=== PATIENT | male | born 1935 | race Caucasian/White ===

== ENCOUNTER → 2018-03-17 | Outpatient (CLI) | payer MEDICARE, OTHER ==
[~2018-03-17] MED LIST: ALLO300T PO; ASCO-96 PO; ASPI-496 PO; ASPI325T17 PO; CHOL2000 PO; GABA-826 PO; HYDR12.53 PO; LISI-170 PO; LOSA50TA7 PO; METO25TA35 PO; OMEG500C3 PO; OXYC5CAP2 PO; SIMV20TA3 PO; TRAM50TA2 PO; UBID100C24 PO
== END | disposition home or self-care (01) ==
LOC: CVU 09:52
PROVIDERS: ATTEND Internal Medicine Cardiovascular Disease
DX: I08.3 Combined rheumatic disorders of mitral, aortic and tricuspid valves (principal); I10 Essential (primary) hypertension; Z95.1 Presence of aortocoronary bypass graft
CPT/HCPCS: 93306; 93880

== ENCOUNTER 2018-04-01 05:57 | Inpatient (IN) | payer MEDICARE, OTHER ==
[2018-03-31 10:26] LABS: BASOPHILS # (AUTO) 0.02 x10^3/uL (0-0.1); BASOPHILS % (AUTO) 0 % (0-1); EOSINOPHILS # (AUTO) 0.12 x10^3/uL (0-0.4); EOSINOPHILS % (AUTO) 2 % (1-7); LYMPHOCYTES % (AUTO) 24 % (22-44); MD NO; MEAN CORPUSCULAR HEMOGLOBIN 30.8 pg (27.5-34.5); MEAN CORPUSCULAR HGB CONC 33.7 g/dL (33.2-36.2); MEAN CORPUSCULAR VOLUME 91.4 fL (81-97); MEAN PLATELET VOLUME 8.6 fL (7.4-10.4); MONOCYTES # (AUTO) 0.55 x10^3/uL (0.2-0.8); MONOCYTES % (AUTO) 9 % (2-9); NEUTROPHILS # (AUTO) 3.79 x10^3/uL (1.8-6.8); NEUTROPHILS % (AUTO) 65 % (42-75); PLATELET COUNT 225 x10^3/uL (130-400); RED BLOOD COUNT 4.93 x10^6/uL (4.38-5.82); RED CELL DISTRIBUTION WIDTH 14.7 % (9.4-14.8)
[2018-03-31 10:27] LABS: ALANINE AMINOTRANSFERASE 37 U/L (12-78); ALBUMIN 3.8 g/dL (3.4-5.0); ANION GAP 7 mmol/L (5-15); CALCIUM 8.7 mg/dL (8.5-10.1); CHLORIDE 105 mmol/L (98-107)
[2018-03-31 10:30] LABS: ALKALINE PHOSPHATASE 65 U/L (45-117); BILIRUBIN,TOTAL 0.5 mg/dL (0.2-1.0); CREATININE 1.32 mg/dL (0.7-1.3); TOTAL PROTEIN 7.6 g/dL (6.4-8.2)
[2018-03-31 10:58] LABS: MICROSCOPIC NOT IND
[2018-03-31 11:07] LABS: CULTURE INDICATED? NO
[~2018-04-01] VITALS: Ht 177.8 cm; Wt 93.4 kg
[2018-04-01] MEDS ORDERED: LACTATED RINGERS 1,000 ML IV SCH (06:26)
[2018-04-01] MEDS ORDERED: SODIUM CHLORIDE 0.9% 100 ML ONE (06:36)
[2018-04-01] MEDS ORDERED: ROPIvacaine/PF 0.2%, 20 ML ONE (06:36)
[2018-04-01] MEDS ORDERED: KETOROLAC 60 MG/2 ML ONE (06:36)
[2018-04-01] MEDS ORDERED: EPINEPHRINE 1 MG/ML, 1ML ONE (06:36)
[2018-04-01] MEDS ORDERED: VANCOMYCIN 1,000 MG ONE (06:36)
[2018-04-01] MEDS ORDERED: TRANEXAMIC ACID 100 MG/ML, 10ML ONE (06:36)
[2018-04-01] MEDS ORDERED: FENTANYL PF 250 MCG/5ML ONE (06:49)
[2018-04-01] MEDS ORDERED: MIDAZOLAM 1 MG/ML, 2ML ONE (06:49)
[2018-04-01] MEDS ORDERED: GABAPENTIN 300 MG CAPSULE PO ONE (07:00)
[2018-04-01] MEDS ORDERED: SCOPOLAMINE PATCH, 1.5MG PATCH.TD72 TD ONE (07:00)
[2018-04-01] MEDS ORDERED: ACETAMINOPHEN 500 MG TABLET PO ONE (07:00)
[2018-04-01] MEDS ORDERED: SUCCINYLCHOLINE 20 MG/ML, 10ML ONE (07:12)
[2018-04-01] MEDS ORDERED: hydrALAzine 20 MG/ML, 1ML ONE (07:12)
[2018-04-01] MEDS ORDERED: PROPOFOL 10 MG/ML, 20ML ONE (07:12)
[2018-04-01] MEDS ORDERED: DEXAMETHASONE 4 MG/ML, 1ML ONE (07:12)
[2018-04-01] MEDS ORDERED: ROCURONIUM 10MG/ML,5ML ONE (07:12)
[2018-04-01] MEDS ORDERED: ONDANSETRON 2MG/ML, 2ML ONE (07:12)
[2018-04-01] MEDS: D5%-0.45% NACL 1,000 ML IV SCH ×2 (08:43→22:03)
[2018-04-01] MEDS: HYDROmorphone 1 MG/ML, 1ML IV PRN ×2 (08:48→08:55)
[2018-04-01] MEDS ORDERED: HYDROmorphone 2 MG/ML, 1ML ONE (08:49)
[2018-04-01] MEDS ORDERED: OXYcodone 5 MG/5 ML ORAL.SOL UDC ONE (08:49)
[2018-04-01] MEDS ORDERED: FENTANYL PF 100 MCG/2ML ONE ×2 (08:59→09:12)
[2018-04-01] MEDS ORDERED: DIAZEPAM 5 MG TABLET ONE (08:59)
[2018-04-01] MEDS ORDERED: ONDANSETRON 2MG/ML, 2ML IV PRN ×2 (09:00)
[2018-04-01] MEDS ORDERED: ONDANSETRON ODT 8 MG PO PRN (09:00)
[2018-04-01] MEDS ORDERED: hydrALAzine 20 MG/ML, 1ML IV PRN (09:00)
[2018-04-01] MEDS ORDERED: DIPHENHYDRAMINE 50 MG CAPSULE PO PRN (09:00)
[2018-04-01] MEDS ORDERED: ONDANSETRON 4 MG TABLET PO PRN (09:00)
[2018-04-01] MEDS ORDERED: OXYcodone 5 MG/5 ML ORAL.SOL UDC PO PRN (09:00)
[2018-04-01] MEDS ORDERED: SENNA/DOCUSATE TABLET PO PRN (09:00)
[2018-04-01] MEDS ORDERED: HYDROmorphone 1 MG/ML, 1ML IV PRN (09:00)
[2018-04-01] MEDS ORDERED: DIAZEPAM 5 MG TABLET PO PRN (09:00)
[2018-04-01] MEDS ORDERED: ALUMINUM/MAG/SIMETHICONE 30 ML UDC PO PRN (09:00)
[2018-04-01] MEDS: LISINOPRIL 20 MG TABLET PO SCH (09:00)
[2018-04-01] MEDS ORDERED: LABETALOL 5MG/ML, 20ML IV PRN (09:00)
[2018-04-01] MEDS ORDERED: PROMETHAZINE 25 MG/ML, 1ML IM PRN (09:00)
[2018-04-01] MEDS ORDERED: PROMETHAZINE 12.5 MG SUPP PR PRN ×2 (09:00)
[2018-04-01] MEDS: ALLOPURINOL 300 MG TABLET PO SCH (09:00)
[2018-04-01] MEDS ORDERED: MAGNESIUM HYDROXIDE 8%, 30ML UDC PO PRN (09:00)
[2018-04-01] MEDS ORDERED: BISACODYL 10 MG SUPP PR PRN (09:00)
[2018-04-01] MEDS ORDERED: TRANEXAMIC ACID 1,000 MG in SODIUM CHLORIDE 0.9% 100 ML IVPB ONE (09:00)
[2018-04-01] MEDS ORDERED: HYDROcodone/APAP 10/325 MG TABLET PO PRN (09:00)
[2018-04-01] MEDS ORDERED: ZOLPIDEM 5MG TABLET PO PRN (09:00)
[2018-04-01] MEDS: FENTANYL PF 100 MCG/2ML IV PRN ×3 (09:01→09:14)
[2018-04-01 11:05] VITALS: BP 93/55
[2018-04-01] MEDS ORDERED: CEFAZOLIN 2,000 MG in DEXTROSE 5% 50 ML IVPB SCH (11:30)
[2018-04-01] MEDS: HYDROCHLOROTHIAZIDE 12.5 MG CAPSULE PO SCH (11:30)
[2018-04-01 12:02] VITALS: BP 104/63
[2018-04-01] MEDS ORDERED: CEFAZOLIN PMX 2GM/50ML 50 ML IVPB SCH (14:30)
[2018-04-01] MEDS: CEFAZOLIN 2,000 MG in DEXTROSE 5% 50 ML IVPB SCH ×2 (15:26→23:15)
[2018-04-01] MEDS: MULTIVITAMINS/MINERALS TABLET PO SCH (15:37)
[2018-04-01] MEDS: TAMSULOSIN 0.4 MG CAP.ER.24H PO SCH (15:37)
[2018-04-01] MEDS: ACETAMINOPHEN 650 MG/20.3 ML UDC PO SCH ×3 (15:38→21:36)
[2018-04-01] MEDS: DOCUSATE 100 MG CAPSULE PO SCH ×2 (15:38→21:35)
[2018-04-01] MEDS: ASPIRIN 81 MG TABLET EC PO SCH (18:15)
[2018-04-01 19:46] VITALS: BP 95/60
[2018-04-01] MEDS ORDERED: SIMVASTATIN 20 MG TABLET PO SCH (21:00)
[2018-04-02 00:17] VITALS: BP 98/59
[2018-04-02] MEDS: ACETAMINOPHEN 650 MG/20.3 ML UDC PO SCH ×2 (03:28→08:57)
[2018-04-02 04:14] VITALS: BP 121/54
[2018-04-02] MEDS: ASPIRIN 81 MG TABLET EC PO SCH (05:27)
[2018-04-02] MEDS ORDERED: DEXAMETHASONE 4 MG/ML, 1ML IVPush SCH (06:00)
[2018-04-02 07:40] VITALS: BP 102/64
[2018-04-02] MEDS: ALLOPURINOL 300 MG TABLET PO SCH (08:57)
[2018-04-02] MEDS: DOCUSATE 100 MG CAPSULE PO SCH (08:57)
[2018-04-02] MEDS: MULTIVITAMINS/MINERALS TABLET PO SCH (08:57)
[2018-04-02] MEDS: LISINOPRIL 20 MG TABLET PO SCH (08:58)
[2018-04-02] MEDS: TAMSULOSIN 0.4 MG CAP.ER.24H PO SCH (08:58)
[2018-04-02] MEDS: HYDROCHLOROTHIAZIDE 12.5 MG CAPSULE PO SCH (08:58)
[2018-04-02] MEDS ORDERED: KETOROLAC 30 MG/1 ML IV SCH (09:00)
[2018-04-02 10:59] VITALS: BP 123/60
[2018-04-02] MEDS ORDERED: HYDR-3307 PO (12:04)
== END 2018-04-02 12:10 | disposition home or self-care (01) | DRG 470 ==
LOC: ORIP 05:57 → 4NOR 10:52 → DCLOUNGE 04-02 12:00
PROVIDERS: ADMIT Orthopaedic Surgery; ATTEND Orthopaedic Surgery
PROC: 0SRB02A Replacement of Left Hip Joint with Metal on Polyethylene Synthetic Substitute, Uncemented, Open Approach (ICD-10-PCS; principal; 2018-04-01 07:30)
DX: M16.12 Unilateral primary osteoarthritis, left hip (principal); I10 Essential (primary) hypertension; E78.5 Hyperlipidemia, unspecified; M65.862 Other synovitis and tenosynovitis, left lower leg; M10.9 Gout, unspecified; I25.10 Atherosclerotic heart disease of native coronary artery without angina pectoris; Z95.1 Presence of aortocoronary bypass graft; Z91.018 Allergy to other foods
CPT/HCPCS: 36415; 72170; 80053; 81003; 85014; 85018; 85025; 86850; 86900; 87081; 93005; C1713; G0378; J0171; J0690; J1100; J1170; J1885; J2250; J2405; J2704; J2795; J3010; J3370; C1776; J0330; J0360; J7120